=== PATIENT | male | born 1930 | race Asian ===

== ENCOUNTER 2019-06-24 22:22 | Inpatient (IN) | payer OTHER, MEDICAID ==
[~2019-06-24] VITALS: Ht 167.6 cm; Wt 83.1 kg
[2019-06-24 22:22] VITALS: BP_SYST 137
[2019-06-24] MEDS ORDERED: LISI-209 PO (23:06)
[2019-06-24] MEDS ORDERED: POTA8TAB4 PO (23:07)
[2019-06-24] MEDS ORDERED: DEXL60CA4 PO (23:07)
[2019-06-24] MEDS ORDERED: CLOP75TA32 PO (23:09)
[2019-06-24] MEDS ORDERED: [UNRECOGNIZED DRUG - CODE] PO (23:09)
[2019-06-24] MEDS ORDERED: FEBU40TA PO (23:10)
[2019-06-24] MEDS ORDERED: PARO10TA75 PO (23:11)
[2019-06-24] MEDS ORDERED: MULT-1198 PO (23:12)
[2019-06-24] MEDS ORDERED: IRON PO (23:23)
[2019-06-24] MEDS ORDERED: DOCUSIL PO (23:25)
[2019-06-24 23:26] LABS: HEMATOCRIT 41.1 % (36-54); HEMOGLOBIN 13.9 g/dL (14.0-18.0); MEAN CORPUSCULAR HEMOGLOBIN 33 pg (27-31); MEAN CORPUSCULAR HGB CONC 34 % (32-36); MEAN CORPUSCULAR VOLUME 98 fL (79.0-98.0); PLATELET COUNT (AUTO) 218 K/uL (130-430); RED BLOOD CELL COUNT(AUTO) 4.21 MIL/uL (4.2-6.2); RED CELL DISTRIBUTION WIDTH 13.6 % (9.0-15.0); WHITE BLOOD COUNT (AUTO) 6.3 K/uL (4.8-10.8)
[2019-06-24] MEDS ORDERED: SITA100T11 PO (23:26)
[2019-06-24] MEDS ORDERED: GABA-531 PO (23:26)
[2019-06-24] MEDS ORDERED: METO25TA6 PO (23:28)
[2019-06-24] MEDS ORDERED: GLIP5TAB13 PO (23:28)
[2019-06-24] MEDS ORDERED: AMLO5TAB4 PO (23:29)
[2019-06-24] MEDS ORDERED: GLU500 PO ×2 (23:30)
[2019-06-24] MEDS ORDERED: APIX2.5T PO (23:31)
[2019-06-24 23:42] LABS: ATYPICAL LYMPHOCYTES % 0 % (0-0); BAND % (MANUAL) 3 % (0-6); BASOPHILS % (MANUAL) 0 % (0-2); EOSINOPHILS % (MANUAL) 9 % (0-7); LYMPHOCYTES % (MANUAL) 16 % (20-46); METAMYELOCYTES % 1 % (0-0); MONOCYTES % (MANUAL) 16 % (0-11)
[2019-06-24 23:43] LABS: MYELOCYTES % 0 % (0-0)
[2019-06-24] MEDS ORDERED: SENN8.6T19 PO (23:54)
[2019-06-24] MEDS ORDERED: LIP40 PO (23:54)
[2019-06-24] MEDS ORDERED: DICY10CA13 PO (23:56)
[2019-06-24] MEDS ORDERED: CAT.1 PO (23:57)
[2019-06-24] MEDS ORDERED: HYDR-3917 PO (23:59)
[2019-06-25] MEDS ORDERED: TRAZ-218 PO
[2019-06-25] MEDS ORDERED: DIPH25CA83 PO (00:01)
[2019-06-25] MEDS ORDERED: ACET325T53 PO (00:02)
[2019-06-25] MEDS ORDERED: DICL100G19 TP (00:02)
[2019-06-25] MEDS ORDERED: Flovent IH (00:07)
[2019-06-25 00:08] LABS: ANION GAP 11 (5-15); CALCIUM 9.3 mg/dL (8.4-11.0); CHLORIDE 104 mmol/L (98-107); CREATININE 1.58 mg/dL (0.55-1.30); GLUCOSE 105 mg/dL (70-99); SODIUM SERUM 142 mmol/L (136-145); UREA NITROGEN, BLOOD 29 mg/dL (8-21)
[2019-06-25] MEDS ORDERED: BETA15OI7 TP (00:10)
[2019-06-25] MEDS ORDERED: LATA7.5D OP (00:10)
[2019-06-25] MEDS ORDERED: SSREG SUBCUT (00:11)
[2019-06-25] MEDS ORDERED: [UNRECOGNIZED DRUG - OTHER] TP (00:12)
[2019-06-25 00:13] LABS: ALANINE AMINOTRANSFERASE 30 U/L (12-78); ALBUMIN 3.2 g/dL (3.4-4.8); ASPARTATE AMINOTRANSFERASE 23 U/L (10-37); TOTAL BILIRUBIN 0.3 mg/dL (0.0-1.0)
[2019-06-25] MEDS ORDERED: IBUP-1969 PO (00:14)
[2019-06-25] MEDS ORDERED: INSU100I26 SQ (00:14)
[2019-06-25] MEDS ORDERED: LIDOCAINE PATCH TP (00:16)
[2019-06-25] MEDS ORDERED: INSULIN REGULAR, HUMAN 100 UNITS/ML, 10 ML VIAL (humuLIN R) SUBCUT PRN (01:00)
[2019-06-25 01:16] VITALS: BP_SYST 148
[2019-06-25 08:02] VITALS: BP_SYST 146
[2019-06-25] MEDS ORDERED: ACETAMINOPHEN 325 MG TABLET PO PRN (10:00)
[2019-06-25] MEDS ORDERED: ASPIRIN 81 MG TABLET(ECOTRIN) PO ONE (10:00)
[2019-06-25] MEDS ORDERED: DIPHENHYDRAMINE HCL 25 MG CAPSULE PO PRN (10:00)
[2019-06-25] MEDS ORDERED: METOPROLOL SUCCINATE 25 MG TAB.SR.24H (TOPROL XL) PO ONE (10:00)
[2019-06-25] MEDS ORDERED: ATORVASTATIN 20 MG TABLET PO ONE (10:00)
[2019-06-25] MEDS ORDERED: cloNIDine HCL 0.1 MG TABLET PO PRN (10:00)
[2019-06-25] MEDS ORDERED: traZODone HCL 50 MG TABLET (DESYREL) PO PRN (10:00)
[2019-06-25] MEDS ORDERED: LISINOPRIL 5 MG TABLET PO ONE (10:15)
[2019-06-25] MEDS ORDERED: DEXTROSE 50% JECT 50 ML DISP.SYRIN IVP PRN (10:15)
[2019-06-25] MEDS ORDERED: PANTOPRAZOLE SODIUM 40 MG TAB PO ONE (10:15)
[2019-06-25] MEDS ORDERED: PARoxetine HCL 20 MG TABLET PO ONE (10:15)
[2019-06-25] MEDS ORDERED: METOPROLOL TARTRATE 25 MG TABLET PO ONE (10:15)
[2019-06-25] MEDS ORDERED: GABAPENTIN 300 MG CAPSULE PO ONE (10:15)
[2019-06-25] MEDS ORDERED: amLODIPine BESYLATE 5 MG TABLET PO ONE (10:15)
[2019-06-25] MEDS ORDERED: DOCUSATE SODIUM 100 MG CAPSULE PO ONE (10:30)
[2019-06-25] MEDS ORDERED: CLOPIDOGREL BISULFATE 75 MG TABLET PO ONE (10:30)
[2019-06-25] MEDS: LIDOCAINE PATCH 5% 1 EA TP ONE ×2 (10:30→10:47)
[2019-06-25] MEDS ORDERED: FERROUS SULFATE 325 MG TABLET.DR PO ONE (10:30)
[2019-06-25] MEDS ORDERED: MULTIVITS,CA,MINERALS/IRON/FA 1 TABLET PO ONE (10:30)
[2019-06-25] MEDS ORDERED: APIXABAN 2.5 MG TABLET PO ONE (10:45)
[2019-06-25] MEDS ORDERED: DICYCLOMINE HCL 10 MG CAPSULE PO PRN (10:45)
[2019-06-25] MEDS: INSULIN REGULAR, HUMAN 100 UNITS/ML, 10 ML VIAL (humuLIN R) SUBCUT PRN (11:19)
[2019-06-25] MEDS ORDERED: HEPARIN 25,000 UNITS in 250 ML PREMIX IV PRN (13:15)
[2019-06-25] MEDS ORDERED: HEPARIN SODIUM,PORCINE 2000 UNITS/0.4 ML BOLUS IVP PRN (13:15)
[2019-06-25] MEDS ORDERED: HEPARIN SODIUM,PORCINE 3000 UNITS/0.6 ML BOLUS IVP PRN (13:15)
[2019-06-25 13:39] VITALS: BP_SYST 153
[2019-06-25] MEDS: GABAPENTIN 300 MG CAPSULE PO SCH ×2 (15:02→20:55)
[2019-06-25] MEDS: HEPARIN 25,000 UNITS/D5W 250ML 250 ML IV PRN (15:04)
[2019-06-25 16:09] VITALS: BP_SYST 141
[2019-06-25 19:00] VITALS: BP_SYST 144
[2019-06-25 20:00] VITALS: BP_SYST 144
[2019-06-25] MEDS: LATANOPROST 2.5 ML DROPS (XALATAN) OP SCH (20:53)
[2019-06-25] MEDS: METOPROLOL TARTRATE 25 MG TABLET PO SCH (20:54)
[2019-06-25] MEDS: ATORVASTATIN 20 MG TABLET PO SCH (20:54)
[2019-06-25] MEDS: SENNOSIDES 8.6 MG TABLET PO SCH (20:55)
[2019-06-25] MEDS: amLODIPine BESYLATE 5 MG TABLET PO SCH (20:55)
[2019-06-25] MEDS: LIDOCAINE PATCH 5% 1 EA TP SCH (20:56)
[2019-06-25] MEDS: FLUOCINONIDE 0.05% TOPICAL CREAM 15 GM (LIDEX) TP SCH (20:56)
[2019-06-25] MEDS ORDERED: APIXABAN 2.5 MG TABLET PO SCH (21:00)
[2019-06-26 00:13] VITALS: BP_SYST 121
[2019-06-26 08:15] VITALS: BP_SYST 129
[2019-06-26] MEDS: HEPARIN 25,000 UNITS/D5W 250ML 250 ML IV PRN ×2 (08:30→16:45)
[2019-06-26] MEDS: DOCUSATE SODIUM 100 MG CAPSULE PO SCH (08:46)
[2019-06-26] MEDS: GABAPENTIN 300 MG CAPSULE PO SCH ×3 (08:46→20:42)
[2019-06-26] MEDS: LISINOPRIL 5 MG TABLET PO SCH (08:47)
[2019-06-26] MEDS: PANTOPRAZOLE SODIUM 40 MG TAB PO SCH (08:47)
[2019-06-26] MEDS: PARoxetine HCL 20 MG TABLET PO SCH (08:48)
[2019-06-26] MEDS: amLODIPine BESYLATE 5 MG TABLET PO SCH ×2 (08:48→20:41)
[2019-06-26] MEDS: ASPIRIN 81 MG TABLET(ECOTRIN) PO SCH (08:49)
[2019-06-26] MEDS: FERROUS SULFATE 325 MG TABLET.DR PO SCH (08:49)
[2019-06-26] MEDS: METOPROLOL TARTRATE 25 MG TABLET PO SCH ×2 (08:49→20:42)
[2019-06-26] MEDS: HYDROcodone/ACETAMIN 5-325 MG TAB (NORCO/ VICODIN) PO PRN (08:50)
[2019-06-26] MEDS: MULTIVITS,CA,MINERALS/IRON/FA 1 TABLET PO SCH (08:50)
[2019-06-26] MEDS: FLUOCINONIDE 0.05% TOPICAL CREAM 15 GM (LIDEX) TP SCH ×2 (08:51→20:43)
[2019-06-26] MEDS ORDERED: METOPROLOL SUCCINATE 25 MG TAB.SR.24H (TOPROL XL) PO SCH (09:00)
[2019-06-26] MEDS ORDERED: ATORVASTATIN 20 MG TABLET PO SCH (09:00)
[2019-06-26] MEDS ORDERED: CLOPIDOGREL BISULFATE 75 MG TABLET PO SCH (09:00)
[2019-06-26 11:42] VITALS: BP_SYST 146
[2019-06-26] MEDS: INSULIN REGULAR, HUMAN 100 UNITS/ML, 10 ML VIAL (humuLIN R) SUBCUT PRN ×2 (11:43→20:39)
[2019-06-26 15:46] VITALS: BP_SYST 144
[2019-06-26 20:00] VITALS: BP_SYST 120
[2019-06-26] MEDS: LIDOCAINE PATCH 5% 1 EA TP SCH (20:40)
[2019-06-26] MEDS: ATORVASTATIN 20 MG TABLET PO SCH (20:41)
[2019-06-26] MEDS: SENNOSIDES 8.6 MG TABLET PO SCH (20:41)
[2019-06-26] MEDS: LATANOPROST 2.5 ML DROPS (XALATAN) OP SCH (21:00)
[2019-06-27 00:23] VITALS: BP_SYST 132
[2019-06-27 04:27] LABS: BASOPHILS % (AUTO) 0.5 % (0.0-2.0); EOSINOPHILS # (AUTO) 0.6 K/uL (0.0-0.4); EOSINOPHILS % (AUTO) 9.6 % (0.0-4.0); HEMATOCRIT 40.4 % (36-54); HEMOGLOBIN 13.7 g/dL (14.0-18.0); LYMPHOCYTES # (AUTO) 1.2 K/uL (1.0-5.5); LYMPHOCYTES % (AUTO) 18.8 % (20.5-51.5); MEAN CORPUSCULAR HEMOGLOBIN 33 pg (27-31); MEAN CORPUSCULAR HGB CONC 34 % (32-36); MEAN CORPUSCULAR VOLUME 97 fL (79.0-98.0); MONOCYTES # (AUTO) 0.7 K/uL (0.0-1.0); MONOCYTES % (AUTO) 10.7 % (1.7-9.3); NEUTROPHILS # (AUTO) 3.9 K/uL (1.8-7.7); NEUTROPHILS % (AUTO) 60.4 % (40.0-70.0); PLATELET COUNT (AUTO) 188 K/uL (130-430); RED BLOOD CELL COUNT(AUTO) 4.15 MIL/uL (4.2-6.2); RED CELL DISTRIBUTION WIDTH 13.4 % (9.0-15.0); WHITE BLOOD COUNT (AUTO) 6.5 K/uL (4.8-10.8)
[2019-06-27 04:41] LABS: ANION GAP 7 (5-15); CALCIUM 9.2 mg/dL (8.4-11.0); CHLORIDE 106 mmol/L (98-107); CREATININE 1.63 mg/dL (0.55-1.30); GLUCOSE 94 mg/dL (70-99); POTASSIUM 3.8 mmol/L (3.5-5.1); SODIUM SERUM 143 mmol/L (136-145); UREA NITROGEN, BLOOD 26 mg/dL (8-21)
[2019-06-27] MEDS: INSULIN REGULAR, HUMAN 100 UNITS/ML, 10 ML VIAL (humuLIN R) SUBCUT PRN ×4 (06:18→22:01)
[2019-06-27 08:07] VITALS: BP_SYST 140
[2019-06-27] MEDS ORDERED: REGADENOSON 0.4 MG/5 ML SYRINGE IVP ONE (09:00)
[2019-06-27] MEDS: ASPIRIN 81 MG TABLET(ECOTRIN) PO SCH (10:44)
[2019-06-27] MEDS: PANTOPRAZOLE SODIUM 40 MG TAB PO SCH ×2 (10:44→10:50)
[2019-06-27] MEDS: MULTIVITS,CA,MINERALS/IRON/FA 1 TABLET PO SCH (10:44)
[2019-06-27] MEDS: FERROUS SULFATE 325 MG TABLET.DR PO SCH (10:44)
[2019-06-27] MEDS: GABAPENTIN 300 MG CAPSULE PO SCH ×3 (10:44→21:39)
[2019-06-27] MEDS: METOPROLOL TARTRATE 25 MG TABLET PO SCH ×2 (10:45→21:40)
[2019-06-27] MEDS: PARoxetine HCL 20 MG TABLET PO SCH (10:45)
[2019-06-27] MEDS: amLODIPine BESYLATE 5 MG TABLET PO SCH ×2 (10:46→21:41)
[2019-06-27] MEDS: LISINOPRIL 5 MG TABLET PO SCH (10:47)
[2019-06-27] MEDS: HYDROcodone/ACETAMIN 5-325 MG TAB (NORCO/ VICODIN) PO PRN (10:48)
[2019-06-27] MEDS: DOCUSATE SODIUM 100 MG CAPSULE PO SCH (10:52)
[2019-06-27] MEDS: FLUOCINONIDE 0.05% TOPICAL CREAM 15 GM (LIDEX) TP SCH ×2 (12:16→21:45)
[2019-06-27 14:09] VITALS: BP_SYST 154
[2019-06-27 16:22] VITALS: BP_SYST 151
[2019-06-27] MEDS: LATANOPROST 2.5 ML DROPS (XALATAN) OP SCH (21:00)
[2019-06-27 21:30] VITALS: BP_SYST 130
[2019-06-27] MEDS: LIDOCAINE PATCH 5% 1 EA TP SCH (21:37)
[2019-06-27] MEDS: SENNOSIDES 8.6 MG TABLET PO SCH (21:39)
[2019-06-27] MEDS: ATORVASTATIN 20 MG TABLET PO SCH (21:39)
[2019-06-28 00:20] VITALS: BP_SYST 121
[2019-06-28] MEDS: HEPARIN 25,000 UNITS/D5W 250ML 250 ML IV PRN (00:42)
[2019-06-28 06:22] LABS: BASOPHILS # (AUTO) 0.1 K/uL (0.0-0.2); BASOPHILS % (AUTO) 0.7 % (0.0-2.0); EOSINOPHILS # (AUTO) 0.7 K/uL (0.0-0.4); EOSINOPHILS % (AUTO) 9.6 % (0.0-4.0); HEMOGLOBIN 13.5 g/dL (14.0-18.0); LYMPHOCYTES # (AUTO) 1.6 K/uL (1.0-5.5); LYMPHOCYTES % (AUTO) 20.8 % (20.5-51.5); MEAN CORPUSCULAR HEMOGLOBIN 34 pg (27-31); MEAN CORPUSCULAR HGB CONC 35 % (32-36); MEAN CORPUSCULAR VOLUME 98 fL (79.0-98.0); MONOCYTES # (AUTO) 0.9 K/uL (0.0-1.0); MONOCYTES % (AUTO) 11.8 % (1.7-9.3); NEUTROPHILS # (AUTO) 4.3 K/uL (1.8-7.7); NEUTROPHILS % (AUTO) 57.1 % (40.0-70.0); PLATELET COUNT (AUTO) 195 K/uL (130-430); RED BLOOD CELL COUNT(AUTO) 3.99 MIL/uL (4.2-6.2); RED CELL DISTRIBUTION WIDTH 13.3 % (9.0-15.0); WHITE BLOOD COUNT (AUTO) 7.6 K/uL (4.8-10.8)
[2019-06-28 06:29] LABS: ANION GAP 3 (5-15); CALCIUM 9.7 mg/dL (8.4-11.0); CHLORIDE 104 mmol/L (98-107); CHOLESTEROL 139 mg/dL (<200); CREATININE 1.52 mg/dL (0.55-1.30); GLUCOSE 98 mg/dL (70-99); HDL CHOLESTEROL 51 mg/dL (>45); LDL CHOLESTEROL 77 mg/dL (<100); PHOSPHORUS 4.4 mg/dL (2.7-4.5); POTASSIUM 3.9 mmol/L (3.5-5.1); SODIUM SERUM 140 mmol/L (136-145); TRIGLYCERIDES 72 mg/dL (30-150); UREA NITROGEN, BLOOD 27 mg/dL (8-21)
[2019-06-28 08:10] VITALS: BP_SYST 159
[2019-06-28] MEDS: GABAPENTIN 300 MG CAPSULE PO SCH ×3 (08:12→21:36)
[2019-06-28] MEDS: DOCUSATE SODIUM 100 MG CAPSULE PO SCH (08:12)
[2019-06-28] MEDS: ASPIRIN 81 MG TABLET(ECOTRIN) PO SCH (08:12)
[2019-06-28] MEDS: FERROUS SULFATE 325 MG TABLET.DR PO SCH (08:12)
[2019-06-28 08:13] LABS: FREE T4 (FREE THYROXINE) 1.1 ng/dL (0.6-1.6)
[2019-06-28] MEDS: LISINOPRIL 5 MG TABLET PO SCH (08:13)
[2019-06-28] MEDS: MULTIVITS,CA,MINERALS/IRON/FA 1 TABLET PO SCH (08:13)
[2019-06-28] MEDS: METOPROLOL TARTRATE 25 MG TABLET PO SCH ×2 (08:14→21:34)
[2019-06-28] MEDS: PARoxetine HCL 20 MG TABLET PO SCH (08:15)
[2019-06-28] MEDS: FLUOCINONIDE 0.05% TOPICAL CREAM 15 GM (LIDEX) TP SCH ×2 (08:15→21:32)
[2019-06-28] MEDS: amLODIPine BESYLATE 5 MG TABLET PO SCH ×2 (08:15→21:33)
[2019-06-28 08:34] LABS: THYROID STIMULATING HORMONE 2.59 uIu/mL (0.36-3.74)
[2019-06-28 11:17] VITALS: BP_SYST 131
[2019-06-28] MEDS: INSULIN REGULAR, HUMAN 100 UNITS/ML, 10 ML VIAL (humuLIN R) SUBCUT PRN ×3 (11:49→21:48)
[2019-06-28 15:06] VITALS: BP_SYST 132
[2019-06-28 20:00] VITALS: BP_SYST 148
[2019-06-28] MEDS: ATORVASTATIN 20 MG TABLET PO SCH (21:31)
[2019-06-28] MEDS: LIDOCAINE PATCH 5% 1 EA TP SCH (21:32)
[2019-06-28] MEDS: SENNOSIDES 8.6 MG TABLET PO SCH (21:32)
[2019-06-28] MEDS: LATANOPROST 2.5 ML DROPS (XALATAN) OP SCH (21:48)
[2019-06-28] MEDS: APIXABAN 2.5 MG TABLET PO SCH (22:25)
[2019-06-29 02:19] VITALS: BP_SYST 148
[2019-06-29 08:04] VITALS: BP_SYST 127
[2019-06-29] MEDS: MULTIVITS,CA,MINERALS/IRON/FA 1 TABLET PO SCH (08:52)
[2019-06-29] MEDS: FERROUS SULFATE 325 MG TABLET.DR PO SCH (08:53)
[2019-06-29] MEDS: DOCUSATE SODIUM 100 MG CAPSULE PO SCH (08:53)
[2019-06-29] MEDS: PARoxetine HCL 20 MG TABLET PO SCH (08:53)
[2019-06-29] MEDS: ASPIRIN 81 MG TABLET(ECOTRIN) PO SCH (08:53)
[2019-06-29] MEDS: PANTOPRAZOLE SODIUM 40 MG TAB PO SCH (08:54)
[2019-06-29] MEDS: GABAPENTIN 300 MG CAPSULE PO SCH (08:54)
[2019-06-29] MEDS: APIXABAN 2.5 MG TABLET PO SCH (08:55)
[2019-06-29] MEDS: amLODIPine BESYLATE 5 MG TABLET PO SCH (08:56)
[2019-06-29] MEDS: METOPROLOL TARTRATE 25 MG TABLET PO SCH (08:56)
[2019-06-29] MEDS: FLUOCINONIDE 0.05% TOPICAL CREAM 15 GM (LIDEX) TP SCH (08:57)
[2019-06-29] MEDS: LISINOPRIL 5 MG TABLET PO SCH (08:57)
[2019-06-29 12:10] VITALS: BP_SYST 131
== END 2019-06-29 14:27 | disposition home or self-care (01) | DRG 281 ==
LOC: SED 22:22 → STU 06-25 00:49
PROVIDERS: ADMIT Internal Medicine; ATTEND Internal Medicine
DX: I21.4 Non-ST elevation (NSTEMI) myocardial infarction (principal); I69.354 Hemiplegia and hemiparesis following cerebral infarction affecting left non-dominant side; I13.0 Hypertensive heart and chronic kidney disease with heart failure and stage 1 through stage 4 chronic kidney disease, or unspecified chronic kidney disease; D68.59 Other primary thrombophilia; I25.10 Atherosclerotic heart disease of native coronary artery without angina pectoris; I50.9 Heart failure, unspecified; N18.9 Chronic kidney disease, unspecified; E11.22 Type 2 diabetes mellitus with diabetic chronic kidney disease; E78.5 Hyperlipidemia, unspecified; I48.0 Paroxysmal atrial fibrillation; F32.9 Major depressive disorder, single episode, unspecified; E66.9 Obesity, unspecified; E11.65 Type 2 diabetes mellitus with hyperglycemia; Z87.891 Personal history of nicotine dependence; I25.2 Old myocardial infarction; Z95.0 Presence of cardiac pacemaker; Z68.29 Body mass index [BMI] 29.0-29.9, adult; Z79.4 Long term (current) use of insulin
CPT/HCPCS: 36415; 71045; 80048; 80053; 80061; 82962; 83880; 84100-TC; 84439; 84443-TC; 84484; 85007; 85025; 85027; 85730-TC; 93005; 93017; 93306; 93970; 99285; G0378; J1644; J1815; J2785